=== PATIENT | female | born 2000 | race African-American/Black ===

== ENCOUNTER 2023-04-10 22:52 | Emergency (ER) | payer MEDICAID, OTHER ==
[~2023-04-10] VITALS: Ht 172.7 cm; Wt 64.0 kg
[2023-04-10 22:55] VITALS: O2SAT 99
[2023-04-10 23:26] LABS: BASOPHILS % 0.4 % (0.0-2.0); HEMATOCRIT. 37.7 % (36.0-48.0); HEMOGLOBIN. 12.4 g/dL (12.0-16.0); LYMPHOCYTES % 41.7 % (20.0-50.0); MEAN CORPUSCULAR HEMOGLOBIN 30.5 pg (28.0-32.0); MEAN CORPUSCULAR VOLUME 92.9 fL (81.0-99.0); MEAN PLATELET VOLUME 8.5 fl (7.4-10.4); MONOCYTES % 6.3 % (2.0-8.0); NEUTROPHILS % 50.6 % (40.0-76.0); PLATELET 311 x1000/uL (130-400); RED BLOOD CELL COUNT 4.05 mill/uL (4.2-5.4); RED CELL DISTRIBUTION WIDTH 14.1 % (11.6-14.6)
[2023-04-10 23:29] LABS: CHLORIDE 110 mEq/L (98-107)
[2023-04-11 03:51] VITALS: BP 145/80; PULSE 72; RESP 18; TEMP 98.4
== END 2023-04-11 04:07 | disposition home or self-care (01) ==
LOC: ER 22:52
DX: R07.89 Other chest pain (principal)
CPT/HCPCS: 36415; 80053; 83880; 84484; 85025; 93005; 99284

== ENCOUNTER 2025-01-06 09:53 | Emergency (ER) | payer SELFPAY ==
[~2025-01-06] VITALS: Ht 162.6 cm; Wt 48.0 kg
[2025-01-06 09:55] VITALS: O2SAT 100
[2025-01-06 10:22] LABS: BASOPHILS % 0.5 % (0.0-2.0); HEMATOCRIT. 38.6 % (36.0-48.0); HEMOGLOBIN. 12.7 g/dL (12.0-16.0); LYMPHOCYTES % 14.4 % (20.0-50.0); MEAN CORPUSCULAR HEMOGLOBIN 30.7 pg (28.0-32.0); MEAN CORPUSCULAR HGB CONC 32.8 g/dL (31.0-37.0); MEAN CORPUSCULAR VOLUME 93.5 fL (81.0-99.0); MEAN PLATELET VOLUME 8.7 fl (7.4-10.4); MONOCYTES % 4.5 % (2.0-8.0); NEUTROPHILS % 80.6 % (40.0-76.0); PLATELET 326 x1000/uL (130-400); RED BLOOD CELL COUNT 4.12 mill/uL (4.2-5.4); RED CELL DISTRIBUTION WIDTH 13.9 % (11.6-14.6)
[2025-01-06 10:27] LABS: CHLORIDE 107 mEq/L (98-107); POTASSIUM 4.3 mEq/L (3.5-5.1); SODIUM 144 mEq/L (136-145)
[2025-01-06 10:28] LABS: CARBON DIOXIDE 23 mEq/L (21-32)
[2025-01-06 10:33] LABS: CREATININE 0.9 mg/dL (0.6-1.0); GLUCOSE 105 mg/dL (70-105); UREA NITROGEN BLOOD 11 mg/dL (9-23)
[2025-01-06 10:35] LABS: ALANINE AMINOTRANSFERASE 42 IU/L (10-49); ALBUMIN 4.8 g/dL (3.2-4.8); ASPARTATE AMINOTRANSFERASE 68 IU/L (<34); BILIRUBIN DIRECT 0.1 mg/dL (<=3.0)
[2025-01-06 10:36] LABS: BILIRUBIN TOTAL 0.6 mg/dL (0.1-1.0); PROTEIN TOTAL 8.4 g/dL (6.0-8.3)
[2025-01-06] MEDS: ONDANSETRON HCL 4MG/2ML INJ IV STA (10:41)
[2025-01-06] MEDS: SODIUM CHLORIDE 0.9% 1,000 ML IV ONE (10:41)
[2025-01-06] MEDS: KETOROLAC 30MG/ML VIAL IV STA (10:41)
[2025-01-06 11:03] LABS: HCG SCREEN NEGATIVE
[2025-01-06] MEDS ORDERED: TOPUD PO (14:06)
[2025-01-06 14:22] VITALS: BP 121/81; PULSE 70; RESP 16; TEMP 36.8; O2SAT 100
== END 2025-01-06 14:25 | disposition home or self-care (01) ==
LOC: ER 09:53
DX: N83.202 Unspecified ovarian cyst, left side (principal); Z79.899 Other long term (current) drug therapy
CPT/HCPCS: 80076; 80048; 84703; 83690; 85025; 85610; 36415; 74176; 76830; 76856; 96361; 96374; 96375; 99285; J1885; J2405; J7030; Z7610 ×2